=== PATIENT | female | born 1990 | race Two or more races ===

== ENCOUNTER 2021-01-29 02:27 | Emergency (ER) | payer MEDICAID ==
[~2021-01-29] VITALS: Ht 160 cm; Wt 108.9 kg
[2021-01-29 06:37] VITALS: BP 113/49
[2021-01-29] MEDS ORDERED: KETOROLAC TROMETH 60MG/2ML VIAL IM ONE (07:45)
== END 2021-01-29 08:24 | disposition home or self-care (01) ==
LOC: ER 02:27 → EDBD 02:27 → ER 08:22
DX: S39.012A Strain of muscle, fascia and tendon of lower back, initial encounter (principal); S29.012A Strain of muscle and tendon of back wall of thorax, initial encounter; S16.1XXA Strain of muscle, fascia and tendon at neck level, initial encounter; S70.02XA Contusion of left hip, initial encounter; S70.01XA Contusion of right hip, initial encounter; V49.49XA Driver injured in collision with other motor vehicles in traffic accident, initial encounter; Y93.89 Activity, other specified; Y92.410 Unspecified street and highway as the place of occurrence of the external cause; Y99.8 Other external cause status
CPT/HCPCS: 70450; 72070; 72100; 72125; 73502; 73552; 96372; 99284; J1885